=== PATIENT | female | born 1990 | race Caucasian/White ===

== ENCOUNTER 2020-01-15 10:15 | Outpatient (CLI) | payer OTHER ==
[2020-01-16 12:21] LABS: SARS-CoV-2 MS2 Positive; SARS-CoV-2 N Gene Negative; SARS-CoV-2 S Gene Negative; SARS-CoV-2 orf1ab Negative
== END 2020-01-15 10:16 | disposition home or self-care (01) ==
LOC: SCSLAB 10:15
PROVIDERS: ATTEND Obstetrics & Gynecology
DX: Z01.812 Encounter for preprocedural laboratory examination (principal); Z11.59 Encounter for screening for other viral diseases
CPT/HCPCS: 87635; U0003

== ENCOUNTER 2020-01-18 18:00 | Inpatient (IN) | payer OTHER ==
[~2020-01-18 18:00] MED LIST: Bupivacaine 0.25% HCL 30 ML VIAL ONE; Bupivacaine/Epinephrine 0.25% 30 ML VIAL ONE; Lidocaine 2% MPF 10 ML AMP (For Epidural Use) ONE
[2020-01-18] MEDS ORDERED: hydrALAZINE 20 MG/ML VIAL ONE (21:43)
[2020-01-18 21:52] VITALS: BMI 38.4
[2020-01-18] MEDS ORDERED: Ondansetron PF 4 MG/2 ML Vial IVP PRN (22:12)
[2020-01-18] MEDS ORDERED: Butorphanol Tartrate 1 MG/ML VIAL SLOW IVP PRN (22:12)
[2020-01-18] MEDS ORDERED: Ibuprofen 800 MG TAB PO PRN (22:12)
[2020-01-18] MEDS ORDERED: hydrALAZINE 20 MG/ML VIAL SLOW IVP PRN (22:12)
[2020-01-18] MEDS ORDERED: NS / Oxytocin 40 units/1000ml 1,000 ML IV PRN (22:12)
[2020-01-18] MEDS ORDERED: Lidocaine 1% (PF) 30 ML VIAL SC PRN (22:12)
[2020-01-18] MEDS ORDERED: HYDROcodone/Acetaminophen 5/325 mg Tablet PO PRN ×2 (22:12)
[2020-01-18] MEDS ORDERED: Promethazine HCl 25 MG/ML VIAL IM PRN (22:12)
[2020-01-18] MEDS ORDERED: Calcium Gluc 4.6 MEQ/10 ML (100 MG/ML) SLOW IVP PRN (22:12)
[2020-01-18] MEDS ORDERED: Magnesium Sulfate 20 GM/WATER 500 ML BAG IVPB SCH (22:15)
--- NOTE | 2020-01-18 22:16 | PDOC.BPN ---
- Brief Progress Note OBGYN Lav Crewman: Asked by VAISHALI Mobley to place courtesy admission orders (and cytotec) for Dr Purcell. I was briefed that this patient has had 2 severe systolic BPs triggering the apresoline 5mg protocol administration. BP now 150s/90s. As she required apresoline, I will order magnesium sulfate as well. I have discussed the care plan with Leandra. Dr Purcell aware of patient status.
[2020-01-18] MEDS: Lactated Ringer's 1,000 ML IV SCH (22:35)
[2020-01-18] MEDS: Magnesium Sulfate 20 gm/500 ml 20 GM/500 ML BAG IVPB SCH (22:35)
[2020-01-18] MEDS: Misoprostol 100 MCG TAB VAG SCH (22:42)
[2020-01-18 22:47] LABS: Hemoglobin 12.9 g/dL (12.0-16.0); Mean Corpuscular HGB CONC 34.8 g/dL (32.0-36.0); Mean Corpuscular Hemoglobin 29.7 pg (27.0-31.0); Mean Corpuscular Volume 85.3 fL (78.0-98.0); Mean Platelet Volume 9.1 fL (7.4-10.4); Platelet Count 191 thou/uL (130-400); Red Blood Cell (RBC) Count 4.33 mill/uL (4.20-5.40)
[2020-01-18 22:59] LABS: ALT (SGPT) 14 U/L (8-55); AST (SGOT) 23 U/L (5-34); Albumin 3.3 g/dL (3.5-5.0); Alkaline Phosphatase 211 U/L (40-110); Anion Gap 14 mmol/L (10-20); BUN (Urea Nitrogen) 20 mg/dL (7.0-18.7); Bilirubin, Total 0.2 mg/dL (0.2-1.2); Calc. Creatinine Clearance 167 mL/min (70-130); Calcium 9.3 mg/dL (7.8-10.44); Carbon Dioxide 17 mmol/L (22-29); Chloride 109 mmol/L (98-107); Estimated GFR-MDRD Greater than 90; Globulin 2.9 g/dL (2.4-3.5); Glucose 85 mg/dL (70-105); Potassium 4.4 mmol/L (3.5-5.1); Protein, Total 6.2 g/dL (6.0-8.3); Sodium 136 mmol/L (136-145)
--- NOTE | 2020-01-18 23:05 | PDOC.BPN ---
- Brief Progress Note Patient has recieved a second 5mg...10mg total. If needed again, we will give 10mg to max out at 20mg if needed.
[2020-01-18 23:24] LABS: Syphilis Antibody Nonreactive (Nonreactive); Syphilis Antibody Index 0.02 S/CO (<1.00 Non-Reactive)
[2020-01-19 00:54] LABS: HBSAg Index 0.15 S/CO (0-0.99); HIV (1/2) Antibody/Antigen Non-Reactive (NonReactive); Hep B Surf Ag Non-Reactive S/CO (NonReactive)
[2020-01-19] MEDS: hydrALAZINE 20 MG/ML VIAL SLOW IVP PRN ×2 (01:28→21:15)
[2020-01-19] MEDS ORDERED: Fentanyl 4 mcg/Bup 0.1% Cadd 100 ML ONE ×2 (04:35→13:34)
[2020-01-19] MEDS ORDERED: Lactated Ringer's 500 ML IV PRN (05:40)
[2020-01-19] MEDS ORDERED: Acetaminophen 325 MG TAB PO PRN (05:40)
[2020-01-19] MEDS ORDERED: Ondansetron PF 4 MG/2 ML Vial IVP PRN ×2 (05:40→18:04)
[2020-01-19] MEDS ORDERED: diphenhydrAMINE 50 MG/ML VIAL IVP PRN ×2 (05:40→18:04)
[2020-01-19] MEDS ORDERED: Promethazine HCl 25 MG/ML VIAL IM PRN ×2 (05:40→18:04)
[2020-01-19] MEDS ORDERED: EPHEDRINE 25 MG/5 ML SYRINGE SLOW IVP PRN (05:40)
[2020-01-19] MEDS ORDERED: Naloxone HCl 0.4 mg/ml Vial IVP PRN ×4 (05:40→18:04)
[2020-01-19] MEDS ORDERED: Fentanyl 4 mcg/Bupivacaine 0.1% Cassette 100 ML EPIDURAL SCH (05:45)
[2020-01-19] MEDS ORDERED: Communication Order-Pharmacy FS SCH ×2 (05:45→18:15)
[2020-01-19] MEDS: Lactated Ringer's 1,000 ML IV SCH ×2 (05:59→12:00)
--- NOTE | 2020-01-19 08:25 | PRG ---
DATE OF SERVICE: 01/19/2020 TIME OF SERVICE: 0800 Please see patient's H and P for full history. She is a class B diabetic, on glyburide and metformin with good control. She has been getting twice weekly NSTs and BPPs. She presented for induction of labor last night. Full heart rate tracing from labor and delivery was reviewed by myself. The patient has reported a very active fetus. heart rate tracing was category 1 upon presentation, did not technically meet some criteria for a reactive NST, but was reassuring. With her Cytotec and contractions at times, she had decelerations over variables and some that had a late appearance to them; however, they did not become repetitive. She was started on magnesium sulfate for elevated blood pressures and protein noted in her urine. Of note, with repositioning of her blood pressure cuff to an appropriate level this morning, her blood pressure has actually been in the hypotensive area and that seems to correspond with decreased variability, status post multiple Apresoline administration. The patient was started on magnesium which seemed to be associated with decrease of variability and considering that her blood pressures are running within normal limits now, I have opted to go ahead and discontinue it. Her Accu-Chek was greater than 90. We are not giving her glyburide or metformin while under induction. She SROM'd with clear fluid noted at 0530. On my exam approximately 15 minutes ago, was 2, 90 and zero and an IUPC and a scalp electrode were placed. The patient is going to be fluid resuscitated with repositioning and we will continue to evaluate the heart rate monitoring. If no significant improvement in tracing, may need to proceed with primary delivery secondary to inability to provide induction or augmentation of labor remote from delivery. Preeclampsia labs were reviewed and were all within normal limits except for the patient's elevated urine protein. The patient has had good urine output. Job ID: [id number]
[2020-01-19] MEDS ORDERED: NS w/ Oxytocin 10 units 500 ML ONE (10:22)
[2020-01-19] MEDS ORDERED: Bicitra 30 ML UDCUP ONE (16:46)
[2020-01-19] MEDS ORDERED: Azithromycin 500 MG VIAL ONE (16:46)
[2020-01-19] MEDS ORDERED: Ondansetron PF 4 MG/2 ML Vial ONE (16:58)
[2020-01-19] MEDS ORDERED: Oxytocin 10 UNITS/ML VIAL ONE (16:58)
[2020-01-19] MEDS ORDERED: EPHEDRINE 25 MG/5 ML SYRINGE ONE (16:58)
[2020-01-19] MEDS ORDERED: MORPHINE 5 MG/10 ML PF VIAL ONE (16:58)
[2020-01-19] MEDS ORDERED: Bicitra 30 ML UDCUP PO SCH (17:00)
[2020-01-19] MEDS ORDERED: Azithromycin 500 MG in Sodium Chloride 0.9% 250 ML 250 ML IVPB SCH (17:00)
[2020-01-19] MEDS ORDERED: CEFAZOLIN 2 GM in Premix Bag 1 BAG IVPB SCH (17:00)
--- NOTE | 2020-01-19 17:20 | PRG ---
DATE OF SERVICE: 01/19/2020 TIME OF SERVICE: 1645 hours. The patient's heart rate tracing has remained minimal decreased variability, but improved long-term variability. No definitive late decelerations. She has been on . Her cervix is unchanged at 3 to 4, 90 and -1 to 2 station cephalic. Clear fluids noted. Considering the persistent decreased short-term variability as well as her diabetic state and failure to change her cervix, we will go ahead and proceed with unscheduled . Anesthesia has been notified. We will administer appropriate antibiotics with Zithromax and Ancef. DVT prophylaxis with SCD. Job ID: [id number]
[2020-01-19] MEDS ORDERED: Lidocaine 2% 10 ML INJ ONE (17:24)
[2020-01-19 17:43] LABS: Base Excess (BEa) -6.2 mEq/L (-2.0 to +3.0)
[2020-01-19 17:46] LABS: Actual Bicarbonate (HCO3v) 21 mEq/L (22-28); Base Excess -5.6 mEq/L (-2.0 to +3.0)
[2020-01-19] MEDS ORDERED: Naloxone HCl 0.4 mg/ml Vial IV PRN (18:04)
[2020-01-19] MEDS ORDERED: HYDROmorphone 2 MG/ML VIAL SLOW IVP PRN (18:04)
[2020-01-19] MEDS ORDERED: Promethazine HCl 25 MG SUPP PR PRN (18:04)
[2020-01-19] MEDS ORDERED: Ondansetron HCl/PF 4 MG/2 ML Vial IVP PRN (18:04)
[2020-01-19] MEDS ORDERED: Meperidine HCl/PF 25 MG/ML VIAL SLOW IVP PRN (18:04)
[2020-01-19] MEDS ORDERED: Ketorolac Tromethamine 30 MG/ML VIAL IVP SCH (18:15)
--- NOTE | 2020-01-19 18:23 | OP ---
DATE OF PROCEDURE: 01/19/2020 PREOPERATIVE DIAGNOSES: Class B diabetes, 38 weeks' gestation, induction of labor, failure to progress with non-reassuring heart rate tracing. POSTOPERATIVE DIAGNOSES: Class B diabetes, 38 weeks' gestation, induction of labor, failure to progress with non-reassuring heart rate tracing, and macrosomia suspected. PROCEDURES PERFORMED: Primary low-transverse section without extension. ACQUISITION COST ESTIMATOR: Nathan Joel MD, from [facility]. ANESTHESIOLOGIST: Nael Ingram MD ANESTHESIA: Epidural. DRAINS: Campuzano to gravity. MEDICATIONS: 2 g Ancef and 500 Zithromax pre-incision. DVT PROPHYLAXIS: SCDs. ESTIMATED BLOOD LOSS: Pending. QUANTITATIVE BLOOD LOSS: Approximately 750 mL. OPERATIVE FINDINGS: 1. Vigorous male , cephalic presentation, Apgars and weight pending. 2. Clear fluid. 3. Normal-appearing uterus, tubes, and ovaries bilaterally. COUNTS: Correct counts at the end of procedure. DISPOSITION: Recovery room in good condition. DESCRIPTION OF PROCEDURE: After obtaining appropriate informed consent, epidural was dosed to appropriate level. The patient was prepped and draped. A Pfannenstiel incision was made, carried down to the fascia in midline and incised sharply, extended superior and laterally with curved Diaz scissors. Rectus was dissected off sharply, superiorly and inferiorly, divided midline. Peritoneum was entered bluntly. The Roney O retractor was placed inside. Low-transverse hysterotomy was made just above the level of the vesicouterine peritoneal fold, and extended superiorly and laterally with finger fractionization. 's head was elevated to the hysterotomy, delivered on the abdomen, suctioned cord clamped and cut, handed off to the team in attendance. Usual cord blood sample was obtained. After cord gas was obtained, placenta was removed manually and sent for pathologic analysis. Uterus was curetted out, left in situ. Hysterotomy was noted to be without extension and closed using a running locking #1 Monocryl suture x2. Gutters were irrigated out bilaterally. Hysterotomy was reinspected and noted to be dry. Roney O retractor was removed. Rectus was inspected and noted to be dry. Fascia was reapproximated using 0 PDS suture x2. Subcutaneous tissue was irrigated, rendered hemostatic with Bovie cautery, reapproximated using a 2-0 plain gut. Skin was reapproximated using 4-0 Monocryl and Dermabond. The patient was taken to recovery room in good condition. Job ID: [id number]
[2020-01-19] MEDS ORDERED: Morphine 4 MG/ML VIAL ONE (18:32)
[2020-01-19] MEDS: L&D-Morphine 4 MG/ML VIAL SLOW IVP PRN ×2 (19:01→19:02)
[2020-01-19] MEDS: Magnesium Sulfate 20 gm/500 ml 20 GM/500 ML BAG IVPB SCH (19:16)
[2020-01-19] MEDS: Ketorolac Tromethamine 30 MG/ML VIAL IVP PRN (20:57)
[2020-01-19] MEDS ORDERED: hydrALAZINE 20 MG/ML VIAL ONE (21:13)
[2020-01-20] MEDS: hydrALAZINE 20 MG/ML VIAL SLOW IVP PRN (00:41)
[2020-01-20] MEDS: Magnesium Sulfate 20 gm/500 ml 20 GM/500 ML BAG IVPB SCH ×2 (05:00→15:05)
[2020-01-20] MEDS: Ketorolac Tromethamine 30 MG/ML VIAL IVP PRN (05:01)
[2020-01-20] MEDS ORDERED: Acetaminophen 325 MG TAB PO PRN ×2 (08:32→18:59)
[2020-01-20] MEDS ORDERED: Adacel (T-DAP) 0.5 ML SYRINGE IM ONE (08:32)
[2020-01-20] MEDS ORDERED: hydrALAZINE 20 MG/ML VIAL SLOW IVP PRN ×2 (08:32→18:59)
[2020-01-20] MEDS ORDERED: Meperidine HCl/PF 25 MG/ML VIAL IM PRN ×2 (08:32→18:59)
[2020-01-20] MEDS ORDERED: Ondansetron PF 4 MG/2 ML Vial IVP PRN ×2 (08:32→18:59)
[2020-01-20] MEDS ORDERED: diphenhydrAMINE 25 MG CAP PO PRN ×2 (08:32→18:59)
[2020-01-20] MEDS ORDERED: Lactated Ringer's 1,000 ML IV SCH (08:32)
[2020-01-20] MEDS ORDERED: HYDROcodone/Acetaminophen 5/325 mg Tablet PO PRN ×2 (08:32→18:59)
[2020-01-20] MEDS ORDERED: Simethicone Chewable 80 MG TAB PO PRN (08:32)
[2020-01-20] MEDS ORDERED: Lanolin Ointment 7 GM TUBE TOP PRN ×2 (08:32→18:59)
[2020-01-20] MEDS ORDERED: Zolpidem Tartrate 5 MG TAB PO PRN ×2 (08:32→18:59)
[2020-01-20] MEDS ORDERED: Promethazine HCl 25 MG/ML VIAL IM PRN ×2 (08:32→18:59)
[2020-01-20] MEDS: HYDROcodone/Acetaminophen 5/325 mg Tablet PO PRN ×4 (08:49→22:31)
[2020-01-20 08:54] LABS: #Basophils 0.1 thou/uL (0.0-0.2); #Lymphocytes 2.9 thou/uL (1.20-3.40); #Monocytes 0.5 thou/uL (0.11-0.59); %Basophils 0.7 % (0.0-1.0); %Eosinophils 0.1 % (0.0-10.0); %Lymphocytes 23.3 % (21.0-51.0); %Monocytes 3.7 % (0.0-10.0); %Neutrophils 72.2 % (42.0-75.0); Hemoglobin 11.6 g/dL (12.0-16.0); Mean Corpuscular HGB CONC 34.8 g/dL (32.0-36.0); Mean Corpuscular Hemoglobin 30.1 pg (27.0-31.0); Mean Corpuscular Volume 86.6 fL (78.0-98.0); Mean Platelet Volume 8.3 fL (7.4-10.4); Platelet Count 165 thou/uL (130-400); RBC Distribution Width 14.1 % (11.5-14.5); Red Blood Cell (RBC) Count 3.85 mill/uL (4.20-5.40); White Blood Cell (WBC) Count 12.5 thou/uL (4.8-10.8)
[2020-01-20] MEDS ORDERED: Prenatal Vitamin 1 TAB PO SCH (09:00)
[2020-01-20] MEDS ORDERED: Docusate Calcium (SURFAK) 240 MG CAP PO SCH (09:00)
[2020-01-20 09:21] LABS: Anion Gap 11 mmol/L (10-20); BUN (Urea Nitrogen) 12 mg/dL (7.0-18.7); Calc. Creatinine Clearance 167 mL/min (70-130); Calcium 7.2 mg/dL (7.8-10.44); Carbon Dioxide 20 mmol/L (22-29); Chloride 106 mmol/L (98-107); Estimated GFR-MDRD Greater than 90; Glucose 133 mg/dL (70-105); Magnesium 6.4 mg/dL (1.6-2.6); Potassium 3.9 mmol/L (3.5-5.1); Sodium 133 mmol/L (136-145)
[2020-01-20] MEDS: Ibuprofen 800 MG TAB PO SCH ×3 (10:12→21:15)
--- NOTE | 2020-01-20 12:13 | PRG ---
DATE OF SERVICE: 01/20/2020 TIME OF SERVICE: 0815 hours. SUBJECTIVE: The patient is resting comfortably. She has no complaints of headaches, right upper quadrant pain. OBJECTIVE: VITAL SIGNS: Blood pressure currently is 138/82. The patient has had blood pressures to 166/101 overnight. Urine output has remained in the 50 to 60 mL per hour range. Respirations 18. LUNGS: Clear to auscultation bilaterally. ABDOMEN: Soft and nontender. Bowel sounds in all 4 quadrants. Incision, intact and dry. EXTREMITIES: Edema is stable. DTRs are 1+. LABORATORY DATA: The patient's ordered CBC was not run this morning. PLAN: We will go ahead and order a CBC, basic metabolic panel, and magnesium level and evaluate these results later today. Anticipate continuing magnesium at 2 g/hour until approximately 1800 hours to 1900 hours today, unless magnesium level is elevated. We will continue routine post care. Job ID: [id number]
[2020-01-20] MEDS ORDERED: Magnesium Sulfate 20 gm/500 ml 20 GM/500 ML BAG ONE (15:02)
[2020-01-20] MEDS ORDERED: Labetalol 100 MG TAB PO SCH (19:30)
[2020-01-20] MEDS ORDERED: metFORMIN 500 MG TAB PO SCH (19:45)
[2020-01-20] MEDS: metFORMIN 500 MG TAB PO SCH (19:50)
[2020-01-20] MEDS: Docusate Calcium (SURFAK) 240 MG CAP PO SCH (21:15)
[2020-01-21] MEDS: HYDROcodone/Acetaminophen 5/325 mg Tablet PO PRN ×5 (02:56→22:24)
[2020-01-21 05:39] LABS: Hemoglobin 10.3 g/dL (12.0-16.0); Mean Corpuscular HGB CONC 33.4 g/dL (32.0-36.0); Mean Corpuscular Hemoglobin 29.2 pg (27.0-31.0); Mean Corpuscular Volume 87.6 fL (78.0-98.0); Mean Platelet Volume 8.2 fL (7.4-10.4); Platelet Count 201 thou/uL (130-400); RBC Distribution Width 14.3 % (11.5-14.5); Red Blood Cell (RBC) Count 3.52 mill/uL (4.20-5.40); White Blood Cell (WBC) Count 11.6 thou/uL (4.8-10.8)
[2020-01-21] MEDS: Ibuprofen 800 MG TAB PO SCH ×3 (06:15→21:42)
[2020-01-21] MEDS: Docusate Calcium (SURFAK) 240 MG CAP PO SCH ×2 (08:19→21:44)
[2020-01-21] MEDS: metFORMIN 500 MG TAB PO SCH ×2 (08:19→16:42)
[2020-01-21] MEDS: Labetalol 100 MG TAB PO SCH ×2 (08:19→21:42)
[2020-01-21] MEDS: Prenatal Vitamin 1 TAB PO SCH (08:19)
[2020-01-21] MEDS: Simethicone Chewable 80 MG TAB PO PRN ×3 (08:19→21:42)
[2020-01-21] MEDS: Lactated Ringer's 1,000 ML IV SCH (09:24)
[2020-01-21] MEDS: Misoprostol 100 MCG TAB VAG SCH (09:25)
--- NOTE | 2020-01-21 09:44 | PRG ---
DATE OF SERVICE: 01/21/2020 TIME OF SERVICE: 0920 hours. SUBJECTIVE: The patient is resting comfortably. She has no complaints. No headache or blurred vision. She was transferred to approximately 0700 hours. OBJECTIVE: VITAL SIGNS: Temperature 98.5, pulse 90, blood pressure 146/91, respirations 20. HEENT: Within normal limits. LUNGS: Clear to auscultation bilaterally. HEART: Regular rate and rhythm. ABDOMEN: Soft, nontender. No rebound or guarding. Bowel sounds active in 4 quadrants. Incision is intact and dry. EXTREMITIES: No clubbing, cyanosis, or edema. : Perineum, normal lochia. LABORATORY DATA: The patient's hematocrit was 31%, platelet count of 201. Preoperative hematocrit was 36.9%. IMPRESSION: Class B diabetic with severe preeclampsia with persistently elevated blood pressures. PLAN: Routine care. Probable discharge on 01/21. Discharge medications will include labetalol 100 b.i.d., metformin 1000 b.i.d., and [place]. Prescriptions will be sent electronically from office EHR to pharmacy. We will have OB hospitalist the patient tomorrow for discharge. Job ID: [id number]
[2020-01-22] MEDS: HYDROcodone/Acetaminophen 5/325 mg Tablet PO PRN ×5 (04:01→21:39)
[2020-01-22] MEDS: Simethicone Chewable 80 MG TAB PO PRN ×2 (04:02→12:42)
[2020-01-22] MEDS: Ibuprofen 800 MG TAB PO SCH ×3 (05:57→21:39)
--- NOTE | 2020-01-22 06:10 | PDOC.PP ---
Post Progress Note Post Day #: POD3 Subjective: Resting, no c/o. PO intake tolerated: yes Flatus: yes Ambulation: yes Vital Signs (12 hours) Temp Pulse Resp BP BP Pulse Ox 01/22/20 04:37 152/98 H 01/22/20 04:04 97.8 F 87 16 160/99 H 98 01/22/20 00:06 98.2 F 82 16 139/88 97 01/21/20 22:43 150/99 H 01/21/20 21:42 89 01/21/20 21:38 98.0 F 89 18 167/94 H 98 01/21/20 18:15 140/94 H Weight Weight 95.254 kg - Physical Examination General: NAD Respiratory: non-labored breathing Abdominal: no distention Skin: CS incision dry & intact Psychiatric: normal affect Result Diagrams: 01/21/20 05:05 01/20/20 08:33 Additional Labs: Post Labs Blood Type B POSITIVE 01/18/20 22:52 Hep Bs Antigen Non-Reactive S/CO (NonReactive) 01/18/20 22:28 - Assessment/Plan Doing well. Cont. postop care and glucose control. Home either late today or in AM per Dr. Purcell.
[2020-01-22] MEDS: Prenatal Vitamin 1 TAB PO SCH (08:35)
[2020-01-22] MEDS: metFORMIN 500 MG TAB PO SCH ×2 (08:35→17:18)
[2020-01-22] MEDS: Labetalol 100 MG TAB PO SCH ×2 (08:37→21:37)
[2020-01-22] MEDS: Docusate Calcium (SURFAK) 240 MG CAP PO SCH ×2 (08:37→21:37)
[2020-01-23] MEDS: HYDROcodone/Acetaminophen 5/325 mg Tablet PO PRN ×2 (03:38→08:00)
[2020-01-23] MEDS: Ibuprofen 800 MG TAB PO SCH (05:47)
[2020-01-23] MEDS: Simethicone Chewable 80 MG TAB PO PRN (08:01)
[2020-01-23] MEDS: Prenatal Vitamin 1 TAB PO SCH (08:01)
[2020-01-23] MEDS: metFORMIN 500 MG TAB PO SCH (08:01)
[2020-01-23] MEDS: Labetalol 100 MG TAB PO SCH (08:01)
[2020-01-23 08:02] VITALS: BP 152/88
[2020-01-23] MEDS: Docusate Calcium (SURFAK) 240 MG CAP PO SCH (08:02)
[2020-01-23 10:37] VITALS: TEMP 98.4
--- NOTE | 2020-01-25 05:26 | PQF ---
CLINICAL DOCUMENTATION CLARIFICATION FORM: Dear : John Purcell Date / Time: 01/25/2020 05:24 Please exercise your independent, professional judgment in responding to the clarification form. Clinical indicators are provided on the bottom of this form for your review Please check appropriate box(es): [ xx ] Associated Diagnosis: Acute Blood loss anemia [ ] Not clinically significant laboratory findings [ ] Other diagnosis [ ] Unable to determine In addition, please specify: Present on Admission (POA): [ ] Yes [ xx ] No [ ] Unable to determine Physician Signature: Date/Time: For continuity of documentation, please document condition throughout progress notes and discharge summary. Thank You. To be completed by CDI/Coding staff for physician review: Present Clinical Indicators - Signs / Symptoms / Labs Results and Location in Medical Record [x] RBC: 01/19=3.85 01/20=3.52 Labs 01/19 [x] Hgb: 01/19=11.6 01/20=10.3 Labs 01/19 [x] Hct: 01/19=33.4 01/20=30.9 Labs 01/19 [x] Estimated blood loss: 750ml OP Note 01/18 [x] BP: 01/1781=443/112 01/1859=746/96 01/2296=101/88 Vital Signs 01/17 Present Risk Factors Results and Location in Medical Record [x] 38 weeks gestation OP Note 01/18 [x] s/p CS delivery OP Note 01/18 [x] GDM PN 01/20 [x] Severe preeclampsia PN 01/20 Present Treatments Results and Location in Medical Record [x] Hematology Monitoring Labs 01/19 [x] Iron 1 tab oral SEP 04 [x] IVF SEP 04 CDS/Metal Burrer Signature: Jesse Bello Phone #: [phone] Date/Time: 01/25/20 05:24 This is a permanent part of the Medical Record [facility]
== END 2020-01-23 12:15 | disposition home or self-care (01) | DRG 787 ==
LOC: L&D 20:48 → 3SW 01-21 07:46
PROVIDERS: ADMIT Obstetrics & Gynecology; ATTEND Obstetrics & Gynecology
PROC: 10D00Z1 Extraction of Products of Conception, Low, Open Approach (ICD-10-PCS; principal; 2020-01-19)
PROC: 10H07YZ Insertion of Other Device into Products of Conception, Via Natural or Artificial Opening (ICD-10-PCS; 2020-01-19)
PROC: 3E033VJ Introduction of Other Hormone into Peripheral Vein, Percutaneous Approach (ICD-10-PCS; 2020-01-19)
PROC: 4A1H74Z Monitoring of Products of Conception, Cardiac Electrical Activity, Via Natural or Artificial Opening (ICD-10-PCS; 2020-01-19)
DX: O62.0 Primary inadequate contractions (principal); D62 Acute posthemorrhagic anemia; O76 Abnormality in fetal heart rate and rhythm complicating labor and delivery; O14.14 Severe pre-eclampsia complicating childbirth; O24.425 Gestational diabetes mellitus in childbirth, controlled by oral hypoglycemic drugs; Z3A.38 38 weeks gestation of pregnancy; Z37.0 Single live birth; O90.81 Anemia of the puerperium
CPT/HCPCS: 36415; 36416; 80048; 80053; 81003; 82805; 83735; 85025; 85027; 86780; 86850; 86900; 86901; 87340; 87389; 87635; 88307; J0360; J0456; J0690; J1885; J2001; J2270; J2274; J2405; J2590; J3475; S0020; U0003

== ENCOUNTER 2020-01-25 12:18 | Inpatient (IN) | payer OTHER ==
[2020-01-25 16:00] LABS: #Basophils 0.1 thou/uL (0.0-0.2); #Eosinphils 0.1 thou/uL (0.0-0.7); #Lymphocytes 2.9 thou/uL (1.20-3.40); #Monocytes 0.2 thou/uL (0.11-0.59); #Neutrophils 6.8 thou/uL (1.40-6.50); %Basophils 0.7 % (0.0-1.0); %Eosinophils 1.1 % (0.0-10.0); %Lymphocytes 28.9 % (21.0-51.0); %Monocytes 1.5 % (0.0-10.0); %Neutrophils 67.8 % (42.0-75.0); Hemoglobin 11.2 g/dL (12.0-16.0); Mean Corpuscular HGB CONC 33.6 g/dL (32.0-36.0); Mean Corpuscular Hemoglobin 29.5 pg (27.0-31.0); Mean Platelet Volume 7.1 fL (7.4-10.4); Platelet Count 350 thou/uL (130-400); RBC Distribution Width 14.2 % (11.5-14.5); Red Blood Cell (RBC) Count 3.78 mill/uL (4.20-5.40); White Blood Cell (WBC) Count 10.1 thou/uL (4.8-10.8)
[2020-01-25 16:03] LABS: Bilirubin Negative (Negative); Blood, Urine Large (Negative); Glucose, Urine (Dipstick) Negative (Negative); Ketone, Urine Negative (Negative); Leukocyte Negative (Negative); Nitrite Negative (Negative); Protein, Urine (Dipstick) 100 mg/dL (Neg-Trace); Urobilinogen 0.2 mg/dL (Less than 2)
[2020-01-25 16:05] LABS: Clarity Hazy (Clear)
[2020-01-25 16:07] LABS: INR-International Normal Ratio 0.9; PTT 26.8 sec (22.9-36.1); Prothrombin Time 12.1 sec (12.0-14.7)
[2020-01-25 16:12] LABS: Transitional Epithelial 0-3 HPF (None Seen); WBC/HPF None Seen HPF (0-3)
[2020-01-25 16:20] LABS: ALT (SGPT) 78 U/L (8-55); AST (SGOT) 103 U/L (5-34); Albumin 3.7 g/dL (3.5-5.0); Alkaline Phosphatase 105 U/L (40-110); Anion Gap 13 mmol/L (10-20); BUN (Urea Nitrogen) 14 mg/dL (7.0-18.7); Bilirubin, Total 0.2 mg/dL (0.2-1.2); Calc. Creatinine Clearance 0 mL/min (70-130); Calcium 9.3 mg/dL (7.8-10.44); Carbon Dioxide 26 mmol/L (22-29); Chloride 104 mmol/L (98-107); Estimated GFR-MDRD Greater than 90; Globulin 3.4 g/dL (2.4-3.5); Glucose 125 mg/dL (70-105); Potassium 3.8 mmol/L (3.5-5.1); Protein, Total 7.1 g/dL (6.0-8.3); Sodium 139 mmol/L (136-145)
[2020-01-25] MEDS ORDERED: Labetalol HCl 100 MG/20 ML VIAL ONE ×2 (16:31→18:08)
[2020-01-25 17:57] VITALS: BMI 38.5
[2020-01-25] MEDS ORDERED: Magnesium Sulfate 20 gm/500 ml 20 GM/500 ML BAG ONE (18:07)
[2020-01-25] MEDS: Magnesium Sulfate 20 gm/500 ml 20 GM/500 ML BAG IVPB SCH (18:17)
[2020-01-25] MEDS ORDERED: Zolpidem Tartrate 5 MG TAB PO PRN (18:22)
[2020-01-25] MEDS ORDERED: Calcium Gluconate 4.6 MEQ in Sodium Chloride 0.9% 100 ML IVPB PRN (18:22)
[2020-01-25] MEDS ORDERED: Ondansetron PF 4 MG/2 ML Vial IVP PRN (18:22)
[2020-01-25] MEDS ORDERED: Magnesium Sulfate 20 GM/WATER 500 ML BAG IVPB SCH (18:30)
[2020-01-25] MEDS: Labetalol HCl 100 MG/20 ML VIAL SLOW IVP PRN ×3 (19:39→21:07)
--- NOTE | 2020-01-25 22:34 | HP ---
REGULAR PHYSICIAN: John Purcell MD. CHIEF COMPLAINT: Elevated blood pressure at [facility]. HISTORY OF PRESENT ILLNESS: Ms. Cesar Temple is a 29-year-old G1, now P1, who is status post section on 01/19/[address] Purcell. Her was apparently performed for failure to progress and she was hypertensive at that time and was placed on magnesium. Of note is the fact that she is a diabetic on oral hypoglycemics. Her blood sugar was well controlled when she was in the hospital. The patient was seen today for followup at [facility] and there her blood pressure is 166/120. She was seen in the ER initially as well, and her blood pressure was elevated there as well. She does report a mild headache. She denies visual changes or right upper quadrant pain. PAST MEDICAL HISTORY: Diabetes as above, treated with oral hypoglycemics only. PAST SURGICAL HISTORY: section as above. CURRENT MEDICATIONS: 1. vitamins. 2. Labetalol 100 mg p.o. b.i.d. She was discharged on this. 3. Metformin 1000 mg 1 p.o. b.i.d. ALLERGIES: NO KNOWN ALLERGIES. SOCIAL HISTORY: Denies tobacco, alcohol, or drug use. FAMILY HISTORY: Unremarkable. REVIEW OF SYSTEMS: Positive for mild headache. Denies fever, chills, nausea, vomiting, visual changes or right upper quadrant pain. PHYSICAL EXAMINATION: VITAL SIGNS: Blood pressure in Labor and Delivery was 163/94. The remainder of her vital signs are stable. CHEST: Clear to auscultation. CARDIOVASCULAR: Regular rate and rhythm. ABDOMEN: Soft, nontender. The incision is well healed. EXTREMITIES: She has 2+ edema. LABORATORY DATA: Done in the emergency room. White count 10.1, hemoglobin and hematocrit 11.2 and 33.3. Platelet count 350,000. PT and PTT are 12.1 and 26.8 respectively. Chemistries show a sodium of 139 and potassium of 3.8, BUN of 14, and creatinine of 0.75. Glucose is 125. Total bilirubin 0.2. AST and ALT are elevated at 103 and 78 respectively. Alkaline phosphatase is 105. Urinalysis shows 2+ protein, but large blood. ASSESSMENT: -induced hypertension. PLAN: At this time due to her blood pressure and symptoms, we will proceed with magnesium and then treat her blood pressure as needed with either labetalol or Apresoline. We will monitor glucoses while she is here. She will be observed closely. Job ID: [id number] [email or web address]
[2020-01-26] MEDS: Magnesium Sulfate 20 gm/500 ml 20 GM/500 ML BAG IVPB SCH (02:25)
--- NOTE | 2020-01-26 06:58 | PDOC.EVN ---
Event Note - Event Note Event Note: POD7 Received Labetalol 20 mg x 3 overnight. BPs now 130/80' ranges. Mg at 2 gm/hr. Cont. Mg x 24 hrs. Will restart Labetalol at 200 mg BID.
[2020-01-26] MEDS: Labetalol 100 MG TAB PO SCH ×2 (09:10→21:30)
[2020-01-26] MEDS ORDERED: Furosemide 20 MG/2 ML VIAL SLOW IVP SCH (09:30)
[2020-01-26 12:21] LABS: SARS-CoV-2 MS2 Positive; SARS-CoV-2 N Gene Negative; SARS-CoV-2 S Gene Negative; SARS-CoV-2 by NAA Not Detected (NotDetected); SARS-CoV-2 orf1ab Negative
[2020-01-26] MEDS: Acetaminophen 325 MG TAB PO PRN (14:46)
[2020-01-26] MEDS: metFORMIN 500 MG TAB PO SCH (20:33)
--- NOTE | 2020-01-26 20:43 | PDOC.EVN ---
Event Note - Event Note Event Note: pt has had blood pressures well controlled on labetolol 200mg bid. uo has been nearly 4liters. I will discontinue magnesium and send to the floor for continued monitoring of blood pressure.
[2020-01-26] MEDS ORDERED: traMADol HCl 50 MG TAB PO PRN ×2 (23:20)
[2020-01-26] MEDS: Ibuprofen 600 MG TAB PO SCH (23:28)
[2020-01-27] MEDS: Ibuprofen 600 MG TAB PO SCH ×2 (05:38→15:48)
--- NOTE | 2020-01-27 07:39 | PRG ---
DATE OF SERVICE: 01/27/2020 SUBJECTIVE: The patient is a 29-year-old female who re-presented and was readmitted to the hospital for severely elevated blood pressures and placed on magnesium for seizure prophylaxis. The patient was discontinued yesterday afternoon around 4 o'clock on magnesium due to the patient's excessive diuresis and blood pressure control. She has now been on 200 mg of labetalol twice a day. The patient reports that she is feeling much better. She is tolerating her diet. She says her swelling is much improved and has no other symptomatology. OBJECTIVE: VITAL SIGNS: Blood pressures have remained in the mild range with her most recent being 137/95, temperature 98.6, pulse of 90, respiratory rate of 16. GENERAL: She appears to be in no acute distress. She is alert, oriented, cooperative, and pleasant to interact with. Blood sugars overnight have been controlled at 120, 114, 110, and 108 over the last 24 hours on metformin 500 mg twice a day. ASSESSMENT AND PLAN: The patient is now hospital day 2 and day 9 now with blood pressure controlled status post magnesium. She also has B diabetes and is controlled on metformin 500 mg twice a day. We will continue to monitor blood pressures over the next 24 hours and should she remain controlled, we will consider discharge tomorrow. Job ID: [id number]
[2020-01-27] MEDS: metFORMIN 500 MG TAB PO SCH ×2 (08:15→17:49)
[2020-01-27] MEDS: Labetalol 100 MG TAB PO SCH ×2 (09:18→21:36)
[2020-01-27] MEDS ORDERED: hydrALAZINE 20 MG/ML VIAL SLOW IVP PRN (21:47)
[2020-01-27] MEDS ORDERED: cloNIDine 0.1 MG TAB PO PRN (21:48)
[2020-01-27] MEDS ORDERED: hydrALAZINE 20 MG/ML VIAL SLOW IVP SCH (22:00)
[2020-01-28] MEDS: Ibuprofen 600 MG TAB PO SCH ×5 (00:06→17:49)
--- NOTE | 2020-01-28 06:38 | PDOC.EVN ---
Event Note - Event Note Event Note: POD9 BPs severe range last PM. 10 mg Apresoline given. Labetalol increased to 300 BID Medicine consulted. Will DC home once BPs better contolled.
[2020-01-28] MEDS: Labetalol 100 MG TAB PO SCH ×2 (08:08→21:10)
[2020-01-28] MEDS: metFORMIN 500 MG TAB PO SCH ×2 (08:09→17:48)
--- NOTE | 2020-01-28 11:39 | HP ---
PRIMARY CARE PHYSICIAN: John Purcell MD CHIEF COMPLAINT: Hypertensive urgency. HISTORY OF PRESENT ILLNESS: The patient is a 29-year-old female with a past medical history significant for diabetes type 2 who presents to the hospital for the above complaint. The patient is . She is G1, P1. She gave on 01/[address] Purcell. She had a for failure to progress and became hypertensive during delivery. She was placed on magnesium and sent home with orders to follow up with her doctors. On Saturday, she was at her doctors office for follow up, she was hypertensive, it was recommended that she go to the ER. In the ER, she was found to have an SBP in the 160s, so she was admitted to the floor. She reports an associated mild headache. She denies any chest pain, heart palpitations, shortness of breath, or abdominal pain. She denies any fever or chills. She reports that she "feels fine." PAST MEDICAL HISTORY: Diabetes type 2, on oral antihyperglycemics. PAST SURGICAL HISTORY: . SOCIAL HISTORY: The patient lives with family at home. She has no history of smoking, illicit drug use, or alcohol intake. FAMILY HISTORY: Noncontributory to this case. ALLERGIES: NO KNOWN DRUG ALLERGIES. HOME MEDICATIONS: Metformin 1000 mg p.o. b.i.d. REVIEW OF SYSTEMS: All review of systems are negative unless otherwise stated in the HPI. PHYSICAL EXAMINATION: VITAL SIGNS: Temperature 98.4, blood pressure 150/80, pulse 69, respirations 20 , 99% on room air. 0/10 pain. CONSTITUTIONAL: The patient is alert and oriented to person, place, and time. Comfortable, nontoxic in appearance. HEAD: Atraumatic and normocephalic. EYES: PERRLA. Extraocular muscles intact. Sclerae nonicteric. ENT: Bilateral TMs are intact. EACs are clear. Nares are patent. Oropharynx is clear. Uvula midline. Moist mucous membranes. No oral lesions. NECK: Full range of motion. No cervical spinous tenderness. No JVD. No cervical adenopathy. RESPIRATORY/CHEST: Respirations even and nonlabored. Clear to auscultation. No rhonchi, wheezes, or rales. CARDIOVASCULAR: S1 and S2 appreciated. Regular rate and rhythm. No murmurs, rubs, or gallops. ABDOMEN: Soft, nontender. Active bowel sounds. No guarding. No rigidity. No rebound. Negative Rovsing sign. Negative Ortega sign. No abdominal bruit auscultated. BACK: Full range of motion. No central spinous tenderness. No CVA tenderness. EXTREMITIES: Upper extremities; full range of motion, normal strength, sensation intact, palpable radial pulses. Lower extremities; full range of motion, normal strength, sensation intact, palpable pedal pulses, 1+ pitting edema. NEUROLOGIC: A and O x4. Moves all extremities well. No focal motor deficits. Normal gait. SKIN: There is a well-healing horizontal incision to the pelvic region. No cellulitis. Nontender. Cool to touch. PSYCHIATRIC: Normal affect. A and O x4. LABORATORY DATA AND DIAGNOSTICS: Sodium 139, potassium 3.8, chloride 104, carbon dioxide 26, BUN 14, creatinine 0.75, glucose 125, calcium 9.3, magnesium 1.6, AST 103, ALT 78, alkaline phosphatase 105, albumin 3.7. WBCs 10.1, hemoglobin 11.2, hematocrit 33.3, platelets 350. PT 12.1, INR 0.9. UA shows protein, large blood, 11 to 20 rbc's. COVID negative. IMPRESSION AND PLAN: 1. Hypertensive urgency. The patient was admitted to the floor inpatient status. Expected length of stay greater than 2 midnights. The patient is a , postop day 9, for a on 01/[address] Purcell. The patient came with systolic blood pressure of 160s, given magnesium and placed on labetalol. The patient has responded well to the medication regimen. We agree to continue labetalol. Agree to continue aggressive blood pressure management. 2. Diabetes type 2, on oral antihyperglycemics. The patient is on metformin 1000 mg p.o. b.i.d. Blood sugars are well controlled at this time. Agree to continue current regimen. Continue Accu-Cheks q.6. 3. hypertension. 4. SCDs for deep venous thrombosis prophylaxis. No GI prophylaxis. The patient is a full code. 5. Discussed the case with Dr. Carvajal. Job ID: [id number] [facility]
--- NOTE | 2020-01-28 18:15 | PDOC.EVN ---
Event Note - Event Note Event Note: Chart was reviewed by me. I saw the patient. Also discussed her case with CANAL DRIVER Dante Bernard. 29-year-old lady G1, P1 presenting with hypertensive urgency. She currently denies any complaints. Physical examination was significant for obesity but was otherwise unremarkable. Patient has been started on labetalol with improvement in her blood pressure. I agree with findings and plan of care as documented by CANAL DRIVER.
[2020-01-29] MEDS: Ibuprofen 600 MG TAB PO SCH ×4 (00:09→18:14)
[2020-01-29] MEDS ORDERED: NIFEdipine XL 60 MG TAB PO SCH ×2 (01:15→21:00)
[2020-01-29] MEDS: metFORMIN 500 MG TAB PO SCH ×2 (08:22→18:14)
--- NOTE | 2020-01-29 09:36 | PRG ---
DATE OF SERVICE: 01/29/2020 SUBJECTIVE: The patient is postop day 10, status post primary lower transverse section for non-reassuring heart tones exacerbated by preeclampsia with severe features. The patient was readmitted for exacerbation of blood pressures and is now on hospital day 3. Blood pressures have been uncontrolled with increase of labetalol to 300 b.i.d. She is having exacerbations at night. Decision was made last night to abandon labetalol and to switch her to Procardia. She was given Procardia XL 60 mg as well as 10 mg of hydralazine for acute blood pressure control. OBJECTIVE: VITAL SIGNS: Overnight, her blood pressures have been down to the mild range to 140s/82, and this morning has blood pressure of 118/67. Temperature is 97.6, pulse of 89, respiratory rate of 20, and saturating 98% on room air. GENERAL: She appears to be in no acute distress. She is alert and oriented, cooperative and pleasant to interact with. HEENT: Head is normocephalic, atraumatic. LABORATORY DATA: Blood sugars over the last 24 hours are 81, 86, 132, 93, and 82. ASSESSMENT AND PLAN: The patient is a 29-year-old female, who has had another adjustment to her blood pressure medications, requiring extended stay for observation. We will watch her for the next 24 hours and see if she remains under good control. Blood pressure this morning are significantly lower than what they have been in the past. We will have to see what they are tonight. The patient has B diabetes, controlled on 1000 mg of metformin twice a day. We will continue. Anticipate discharge in the next day or two. Job ID: [id number]
[2020-01-29] MEDS: Acetaminophen 325 MG TAB PO PRN (11:11)
--- NOTE | 2020-01-29 17:59 | PDOC.EVN ---
Event Note - Event Note Event Note: Patient was seen for follow-up regarding hypertensive urgency. She has no complaints. She had elevated blood pressure last night and was started on Procardia with market improvement in her blood pressure. Physical examination was fairly unremarkable. Continue Procardia. Will sign off. Please call back if hospitalist team can be of any assistance.
--- NOTE | 2020-01-29 20:49 | PDOC.EVN ---
Event Note - Event Note Event Note: Doing much better since changing meds last PM.. VSS AF BP at 4p= 119/64 A/P; BPs markedly improved on Procardia XL 60 mg qd. Pt. strongly wants to go home to be with her baby. DC home with Procardia as above. Precautions reviewed.. Has BP check scheduled for Saturday with [facility].
[2020-01-29 20:54] VITALS: BP 149/93; TEMP 98
== END 2020-01-29 21:40 | disposition home or self-care (01) | DRG 776 ==
LOC: ERS 12:18 → L&D-LIB 17:34 → 3SW 01-26 20:48
PROVIDERS: ADMIT Obstetrics & Gynecology; ATTEND Obstetrics & Gynecology
DX: O13.5 Gestational [pregnancy-induced] hypertension without significant proteinuria, complicating the puerperium (principal); O24.435 Gestational diabetes mellitus in puerperium, controlled by oral hypoglycemic drugs; Z23 Encounter for immunization
CPT/HCPCS: 36416; 51702; 80053; 81003; 81015; 83735; 85025; 85610; 85730; 87635; 96374; J0360; J3475; U0003